=== PATIENT | male | born 1985 | race Caucasian/White ===

== ENCOUNTER 2016-03-27 21:04 | Emergency (ER) | payer MEDICAID ==
[~2016-03-27] VITALS: Ht 180.3 cm; Wt 99.8 kg
[~2016-03-27 21:04] MED LIST: LIDOCAINE 2% PO; NAPROSYN500 M1 PO; PEN-VK500 MG PO; SUBOXONE 8 MG-21 FIL SL; [UNRECOGNIZED DRUG - OTHER] PO
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
[2016-03-27 23:55] VITALS: BP 135/70
--- NOTE | 2016-03-28 10:49 | RADIOLOGY REPORT PS360 ---
HIP RT 2-3V W/PELVIS IF PERFOR HISTORY: PAIN ORDERING PHYSICIAN: Shailesh Barbour MD PATIENT AGE: 30 years COMPARISON: None FINDINGS: No fracture or dislocation is evident. No significant degenerative change. No lytic or blastic change. Unremarkable soft tissues IMPRESSION: Negative hip
--- NOTE | 2016-03-28 10:50 | RADIOLOGY REPORT PS360 ---
CT LUMBAR SPINE W/O CONTRAST CLINICAL INDICATION: Back pain following injury PAIN ORDERING PHYSICIAN: Shailesh Barbour MD PATIENT AGE: 30 years COMPARISON: None TECHNIQUE:Axial, sagittal, and coronal images are generated and reviewed without contrast COMPARISON: None FINDINGS:No fracture or dislocation. The disc spaces are well-preserved. There is normal alignment. IMPRESSION: No acute fracture apparent
--- NOTE | 2016-03-28 10:50 | RADIOLOGY REPORT PS360 ---
CT CERVICAL SPINE W/O CONT INDICATION: Neck pain following injury PAIN ORDERING PHYSICIAN: Shailesh Barbour MD PATIENT AGE: 30 years COMPARISON: None TECHNIQUE: Axial images are obtained without contrast. Sagittal and coronal reformatted images are reviewed as well. FINDINGS: Normal alignment. No fracture or dislocation. The disc spaces are well-preserved. No prevertebral soft tissue swelling. Lung apices are clear. There are scattered small lymph nodes in the neck nonspecific. Incidental note made of mucosal thickening of the right maxillary sinus and ethmoid sinuses. Probable residual soft tissue anterior mediastinum IMPRESSION: No acute fracture
--- NOTE | 2016-03-28 10:50 | RADIOLOGY REPORT PS360 ---
CT HEAD W/O CONTRAST HISTORY: Headache following injury PAIN ORDERING PHYSICIAN: Shailesh Barbour MD PATIENT AGE: 30 years COMPARISON: None TECHNIQUE: Axial images obtained without contrast. Brain and bone windows reviewed. FINDINGS: No midline shift, mass effect, intracranial hemorrhage, hydrocephalus, or extra-axial fluid collection is evident. The calvarium has an unremarkable appearance. No mastoid effusion. Mucosal thickening of the ethmoid sinuses. IMPRESSION: No acute intracranial pathology.
== END 2016-03-27 23:55 | disposition home or self-care (01) ==
LOC: ER 21:04
DX: S73.101A Unspecified sprain of right hip, initial encounter (principal); S39.012A Strain of muscle, fascia and tendon of lower back, initial encounter; Z72.0 Tobacco use; R51 Headache; V43.63XA Car passenger injured in collision with pick-up truck in traffic accident, initial encounter; Y92.414 Local residential or business street as the place of occurrence of the external cause